=== PATIENT | male | born 1965 | race Hispanic/Latino ===

== ENCOUNTER 2023-07-09 06:06 | Emergency (ER) | payer OTHER ==
[2023-07-09] MEDS ORDERED: Acetaminophen 500 MG TAB ONE (07:03)
== END 2023-07-09 08:44 ==
LOC: EEVIPCON 06:06 → NAV ERS 06:06
DX: S00.03XA Contusion of scalp, initial encounter (principal); K21.9 Gastro-esophageal reflux disease without esophagitis; I10 Essential (primary) hypertension; Z79.899 Other long term (current) drug therapy; Z79.82 Long term (current) use of aspirin; W01.10XA Fall on same level from slipping, tripping and stumbling with subsequent striking against unspecified object, initial encounter
CPT/HCPCS: 70450